=== PATIENT | male | born 1950 | race Caucasian/White ===

== ENCOUNTER → 2020-10-29 | Outpatient (CLI) | payer MEDICARE ==
--- NOTE | 2020-10-29 09:17 | RAD ---
CT MAXILLOFACIAL WO CONTRAST History: Reason: Pre-op for nasal polyp surgery, nasal polyposis, chr pansinusitis / Spl. Instructions: / History: Comparison: None. Technique: Noncontrast CT imaging was performed of the sinuses. Coronal and sagittal reconstructions were performed. Exposure: One or more of the following individualized dose reduction techniques were utilized for this examination: 1. Automated exposure control 2. Adjustment of the mA and/or kV according to patient size 3. Use of iterative reconstruction technique. Findings: Small fluid and secretions within the bilateral maxillary sinuses. Bilateral maxillary sinus moderate inferior polypoid mucosal thickening. Bilateral anterior maxillary sinus polypoid lesions, right greater than left. Complete opacification of the frontal sinuses. Complete and partial opacification of ethmoid air cells. Right sphenoid sinus mucous retention cyst or polyp. Mild sphenoid sinus mucosal thickening. Opacified ostiomeatal complexes, frontal ethmoidal recesses and sphenoid ostia. Bilateral nasal passage polypoid lesions, right greater than left. Rightward nasal septal mild deviation. No acute fracture. Mastoid air cells are clear. Right maxilla first molar periapical lucency. Orbits are unremarkable. Imaged intracranial contents are unremarkable. Impression: 1. Pansinus disease with numerous polypoid lesions and opacified drainage pathways. 2. Bilateral nasal passage polypoid lesions, right greater than left. 3. Right maxilla first molar periodontal disease. Electronically signed by: Jose A Garrett DO (10/29/2020 9:15 AM) [id number]
== END ==
LOC: CT 08:29
PROVIDERS: ATTEND Otolaryngology
DX: J32.4 Chronic pansinusitis (principal); J33.9 Nasal polyp, unspecified
CPT/HCPCS: 70486